=== PATIENT | male | born 1995 | race Caucasian/White ===

== ENCOUNTER 2022-01-15 01:04 | Emergency (ER) | payer MEDICAID, SELFPAY ==
[~2022-01-15] VITALS: Ht 170.2 cm; Wt 96.8 kg
[2022-01-15] MEDS ORDERED: MORPHINE 4 MG/ML 1ML VIAL/SYRINGE IV ONE (03:00)
[2022-01-15] MEDS ORDERED: PERCOCET 5MG/325MG TAB PO ONE (03:55)
[2022-01-15] MEDS ORDERED: IBUPROFEN 600MG TAB PO ONE (03:55)
[2022-01-15] MEDS ORDERED: IBUP-1022 PO ×2 (04:17→05:12)
[2022-01-15] MEDS ORDERED: PERC5TAB12 PO ×2 (04:17→05:12)
[2022-01-15 04:19] VITALS: BP 121/68
[2022-01-15] MEDS ORDERED: OXYCODONE/APAP 5MG/325MG(HOME DOSE PACK) PO ONE (04:25)
== END 2022-01-15 05:07 | disposition home or self-care (01) ==
LOC: M ED 01:04 → EDBD 01:04 → M ED 05:07
DX: S82.831A Other fracture of upper and lower end of right fibula, initial encounter for closed fracture (principal); X58.XXXA Exposure to other specified factors, initial encounter; Y92.830 Public park as the place of occurrence of the external cause; Z88.0 Allergy status to penicillin; Z88.1 Allergy status to other antibiotic agents; Z88.2 Allergy status to sulfonamides
CPT/HCPCS: 73590; 73610; 73700; 96374; 99284; J2270

== ENCOUNTER → 2022-02-03 | Outpatient (CLI) | payer MEDICAID ==
[~2022-02-03] MED LIST: IBUP-1022 PO; PERC5TAB12 PO
== END ==
LOC: M SOG 11:39
PROVIDERS: ATTEND Orthopaedic Surgery
DX: S82.391A Other fracture of lower end of right tibia, initial encounter for closed fracture (principal); X58.XXXA Exposure to other specified factors, initial encounter; Y92.9 Unspecified place or not applicable; Y93.9 Activity, unspecified; Y99.9 Unspecified external cause status

== ENCOUNTER → 2022-02-10 | Outpatient (CLI) | payer MEDICAID | LOC: M SOG 08:03 | PROVIDERS: ATTEND Orthopaedic Surgery | DX: S82.391A Other fracture of lower end of right tibia, initial encounter for closed fracture (principal); X58.XXXA Exposure to other specified factors, initial encounter; Y92.9 Unspecified place or not applicable; Y93.9 Activity, unspecified; Y99.9 Unspecified external cause status ==

== ENCOUNTER → 2022-02-24 | Outpatient (CLI) | payer MEDICAID | LOC: M SOG 08:32 | PROVIDERS: ATTEND Orthopaedic Surgery | DX: S82.391D Other fracture of lower end of right tibia, subsequent encounter for closed fracture with routine healing (principal) ==

== ENCOUNTER → 2022-03-10 | Outpatient (CLI) | payer OTHER | LOC: M SOG 08:00 | PROVIDERS: ATTEND Orthopaedic Surgery | DX: S82.391A Other fracture of lower end of right tibia, initial encounter for closed fracture (principal) ==